=== PATIENT | female | born 1975 | race Caucasian/White ===

== ENCOUNTER 2016-11-30 00:49 | Emergency (ER) | payer OTHER ==
[~2016-11-30] VITALS: Ht 177.8 cm; Wt 125.0 kg
[2016-11-30 01:38] LABS: ADD MIUA? YES; BILIRUBIN NEGATIVE; BLOOD NEGATIVE; COLOR YELLOW ((YELLOW)); GLUCOSE (STRIP) NEGATIVE; KETONES NEGATIVE; LEUKOCYTES SMALL; NITRITE NEGATIVE; PROTEIN (STRIP) TRACE; SPECIFIC GRAVITY 1.023 (1.000-1.030)
[2016-11-30 02:13] LABS: RED BLOOD CELLS 0-5 /HPF (0-5)
[2016-11-30 02:14] LABS: BACTERIA 2+; EPITHELIAL CELLS RARE; MUCUS NONE SEEN; UCUL ADDED? YES; WHITE BLOOD CELLS 40-50 /HPF (0-5)
[2016-11-30 02:17] LABS: CALCIUM OXALATE CRYSTALS RARE; CASTS NONE SEEN /LPF; CRYSTALS PRESENT
[2016-11-30] MEDS ORDERED: BACTRIM,SEPT1 TABLET PO (02:34)
[2016-11-30 03:12] VITALS: BP 125/82
== END 2016-11-30 03:16 | disposition home or self-care (01) ==
LOC: RME 00:49 → EME 00:49 → RME 03:16
PROVIDERS: Physician Assistant
DX: N39.0 Urinary tract infection, site not specified (principal)
CPT/HCPCS: 81003; 87086; 99281; 99284

== ENCOUNTER 2016-12-03 12:53 | Emergency (ER) | payer OTHER ==
[~2016-12-03] VITALS: Ht 177.8 cm; Wt 124.1 kg
[~2016-12-03 12:53] MED LIST: BACTRIM,SEPT1 TABLET PO
[2016-12-03 13:26] LABS: HEMATOCRIT 37.3 % (36.0-46.0); MCH 28.2 PG (29.0-34.0); MCV 82.7 FL (83-99); MEAN PLAT.VOLUME 8.1 uM^3 (9.5-12.4); PLATELET COUNT 295 K/uL (156-360); RBC DIS.WIDTH-CV 13.7 % (11.8-14.6); RBC DIS.WIDTH-SD 40.2 % (39-53); RED BLOOD COUNT 4.51 M/uL (3.80-5.20); WHITE BLOOD COUNT 9.5 K/uL (4.1-10.2)
[2016-12-03 13:36] LABS: CHLORIDE 111 mEq/L (99-109); POTASSIUM 4.4 mEq/L (3.7-5.4); SODIUM 135 mEq/L (136-147)
[2016-12-03] MEDS ORDERED: VENLAFAXINE225 MG PO (13:37)
[2016-12-03 13:38] LABS: GLUCOSE 142 mg/dL (70-99)
[2016-12-03] MEDS ORDERED: ABILIFY10 MG PO (13:38)
[2016-12-03] MEDS ORDERED: VENLAFAXINE HCL75 M3 PO (13:38)
[2016-12-03 13:39] LABS: ANION GAP 10 MEQ/L (2-14)
[2016-12-03] MEDS ORDERED: KLONOPIN1 MG PO (13:39)
[2016-12-03 13:40] LABS: TOTAL BILIRUBIN 0.6 mg/dL (0.0-1.0)
[2016-12-03 13:41] LABS: ALKALINE PHOSPHATASE 126 IU/L (3-129)
[2016-12-03 13:42] LABS: GFR ESTIMATE (CALCULATED) 38 mL/min/
[2016-12-03 13:43] LABS: UREA NITROGEN (BUN) 22 mg/dL (9-23)
[2016-12-03 13:50] LABS: QUANTITATIVE HCG < 4.0 MIU/ML
[2016-12-03 14:20] LABS: COLOR YELLOW ((YELLOW))
[2016-12-03 14:21] LABS: ADD MIUA? YES; BILIRUBIN NEGATIVE; BLOOD NEGATIVE; GLUCOSE (STRIP) NEGATIVE; KETONES NEGATIVE; LEUKOCYTES NEGATIVE; NITRITE NEGATIVE; PH, URINE 6.5 (5-8); PROTEIN (STRIP) NEGATIVE; SPECIFIC GRAVITY 1.086 (1.000-1.030); UROBILINOGEN 0.2 MG/DL (0.2-1.0)
[2016-12-03 14:59] LABS: BACTERIA 1+; CALCIUM OXALATE CRYSTALS RARE; CASTS NONE SEEN /LPF; CRYSTALS PRESENT; EPITHELIAL CELLS 1+; MUCUS TRACE; RED BLOOD CELLS RARE /HPF (0-5); UCUL ADDED? NO
[2016-12-03] MEDS ORDERED: NAPROSYN500 MG PO (17:02)
[2016-12-03] MEDS ORDERED: ZOFRAN ODT4 MG PO (17:02)
[2016-12-03] MEDS ORDERED: LORTAB 5-325 M1 EACH PO (17:02)
[2016-12-03] MEDS ORDERED: FLOMAX0.4 MG PO (17:02)
[2016-12-03 17:45] VITALS: BP 101/68
[2016-12-07] MEDS ORDERED: FLOMAX0.4 MG PO (15:33)
[2016-12-07] MEDS ORDERED: NAPROSYN500 MG PO (15:34)
[2016-12-07] MEDS ORDERED: LORTAB 5-325 M1 EACH PO (15:35)
[2016-12-07] MEDS ORDERED: ZOFRAN ODT4 MG PO (15:37)
[2016-12-07] MEDS ORDERED: VITAMIN D-32000 UNI2 PO (15:38)
[2016-12-07] MEDS ORDERED: MULTIPLE VITAM1 EAC4 PO (15:38)
[2016-12-07] MEDS ORDERED: SYNTHROID200 MCG PO (15:58)
== END 2016-12-03 18:05 | disposition home or self-care (01) ==
LOC: EME 12:53
DX: N20.0 Calculus of kidney (principal); R10.9 Unspecified abdominal pain; R11.2 Nausea with vomiting, unspecified; N39.0 Urinary tract infection, site not specified; Z98.84 Bariatric surgery status; Z87.891 Personal history of nicotine dependence
CPT/HCPCS: 74176; 80053; 81003; 84702; 85027; 99281; 99284; J1885; J2405; J7030

== ENCOUNTER → 2016-12-11 | Outpatient (CLI) | payer OTHER ==
[~2016-12-11] VITALS: Ht 177.8 cm; Wt 123.4 kg
[~2016-12-11] MED LIST changes: +ABILIFY10 MG PO; +FLOMAX0.4 MG PO; +KLONOPIN1 MG PO; +LORTAB 5-325 M1 EACH PO; +MULTIPLE VITAM1 EAC4 PO; +NAPROSYN500 MG PO; +SYNTHROID200 MCG PO; +VENLAFAXINE HCL75 M3 PO; +VENLAFAXINE225 MG PO; +VITAMIN D-32000 UNI2 PO; +ZOFRAN ODT4 MG PO
== END | disposition home or self-care (01) ==
LOC: AMB 11:24
PROC: 0TF6XZZ Fragmentation in Right Ureter, External Approach (ICD-10-PCS; principal; 2016-12-11)
DX: N20.1 Calculus of ureter (principal); Z98.84 Bariatric surgery status; Z68.39 Body mass index [BMI] 39.0-39.9, adult; E03.9 Hypothyroidism, unspecified; Z83.3 Family history of diabetes mellitus
CPT/HCPCS: 74000; J2250; J3010